=== PATIENT | female | born 1995 | race Two or more races ===

== ENCOUNTER 2019-03-16 14:21 | Emergency (ER) | payer OTHER ==
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
== END 2019-03-16 16:45 | disposition home or self-care (01) ==
LOC: FB.ED 14:21
DX: R40.4 Transient alteration of awareness (principal); Z71.1 Person with feared health complaint in whom no diagnosis is made; F41.9 Anxiety disorder, unspecified; F32.9 Major depressive disorder, single episode, unspecified; E66.9 Obesity, unspecified; F17.200 Nicotine dependence, unspecified, uncomplicated; Z79.899 Other long term (current) drug therapy
CPT/HCPCS: 80305-QW; 99283

== ENCOUNTER 2019-11-27 05:12 | Emergency (ER) | payer OTHER ==
[2019-11-27] MEDS ORDERED: Lidocaine 2% Viscous Solution 15 ML Cup PO ONE (05:42)
--- NOTE | 2019-11-27 06:54 | EDM.PDOC ---
ED HPI GENERAL MEDICAL PROBLEM - General Stated Complaint: SELF HARM Time Seen by Provider: 11/27/19 07:00 Source of Information: Reports: Patient History Limitations: Reports: No Limitations - History of Present Illness INITIAL COMMENTS - FREE TEXT/NARRATIVE: Patient presented to the ED because she is feeling depressed, has been drinking tonight, and cut her left forearm with a knife. She has several superficial cuts. She denies any suicidal or homicidal ideations. She said she is under a lot of stress lately due to family , school, and her depression not getting better. - Related Data Allergies Allergy/AdvReac Type Severity Reaction Status Date / Time No Known Allergies Allergy Verified 03/16/19 14:41 Home Meds: Home Meds Sertraline [Zoloft] 50 mg PO DAILY 03/16/19 [History] Past Medical History Psychiatric History: Reports: Anxiety, Depression Endocrine/Metabolic History: Reports: Obesity/BMI 30+ - Past Surgical History HEENT Surgical History: Reports: Oral Surgery (Was indeed extraction), Other (See Below) (Cyst removed from jaw) Social & Family History - Family History Family Medical History: Noncontributory - Caffeine Use Caffeine Use: Reports: Soda - Living Situation & Occupation Occupation: Employed (Works at [employer]) ED ROS GENERAL - Review of Systems Review Of Systems: See Below Constitutional: Reports: No Symptoms HEENT: Reports: No Symptoms Respiratory: Reports: No Symptoms Cardiovascular: Reports: No Symptoms Endocrine: Reports: No Symptoms GI/Abdominal: Reports: No Symptoms : Reports: No Symptoms Musculoskeletal: Reports: No Symptoms Skin: Reports: Wound Neurological: Reports: No Symptoms Psychiatric: Reports: Anxiety Hematologic/Lymphatic: Reports: No Symptoms ED EXAM, GENERAL - Physical Exam Exam: See Below Exam Limited By: No Limitations General Appearance: Alert, No Apparent Distress Nose: Normal Inspection, Normal Mucosa, No Blood Throat/Mouth: Normal Inspection, Normal Lips, Normal Teeth Head: Atraumatic, Normocephalic Neck: Normal Inspection, Supple, Non-Tender, Full Range of Motion Respiratory/Chest: No Respiratory Distress, Lungs Clear, Normal Breath Sounds Cardiovascular: Normal Peripheral Pulses, Regular Rate, Rhythm, No Edema GI/Abdominal: Normal Bowel Sounds, Soft, Non-Tender, No Organomegaly Back Exam: Normal Inspection, Full Range of Motion Extremities: Normal Inspection, Normal Range of Motion Neurological: Alert, Oriented, CN II-XII Intact Psychiatric: Depressed Mood, Flat Affect Skin Exam: Warm, Other (multiple superficial cuts on left forearm) Course - Vital Signs Text/Narrative:: Labs reviewed and discussed with patient Dermabond was applied to the superficial cuts [facility] recommended outpatient therapy and adjustment of medication - Orders/Labs/Meds Orders: Active Orders 24 hr Category Date Time Status THYROXINE (T4) FREE, DIRECT, S Stat Lab 11/27/19 05:35 Received Labs: Laboratory Tests 11/27/19 11/27/19 11/27/19 Range/Units 05:09 05:09 05:09 WBC (4.5-12.0) X10-3/uL RBC (3.23-5.20) x10(6)uL Hgb (11.5-15.5) g/dL Hct (30.0-51.3) % MCV (80-96) fL MCH (27.7-33.6) pg MCHC (32.2-35.4) g/dL RDW (11.5-15.5) % Plt Count (125-369) X10(3)uL MPV (7.4-10.4) fL Neut % (Auto) (46-82) % Lymph % (Auto) (13-37) % [place] % (Auto) (4-12) % Eos % (Auto) (1.0-5.0) % Baso % (Auto) (0-2) % Neut # (Auto) (1.6-8.3) # Lymph # (Auto) (0.6-5.0) # [place] # (Auto) (0.0-1.3) # Eos # (Auto) (0.0-0.8) # Baso # (Auto) (0.0-0.2) # Sodium (135-145) mmol/L Potassium (3.5-5.3) mmol/L Chloride (100-110) mmol/L Carbon Dioxide (21-32) mmol/L BUN (7-18) mg/dL Creatinine (0.55-1.02) mg/dL Est Cr Clr Drug Dosing Estimated GFR (MDRD) (>60) BUN/Creatinine Ratio (9-20) Glucose (80-116) mg/dL Calcium (8.6-10.2) mg/dL Total Bilirubin (0.1-1.3) mg/dL AST (5-25) IU/L ALT (12-36) U/L Alkaline Phosphatase (56-112) IU/L Total Protein (6.0-8.0) g/dL Albumin (3.5-5.2) g/dL Globulin g/dL Albumin/Globulin Ratio TSH, Ultra Sensitive (0.36-3.74) IU/mL Urine Color Yellow (YELLOW) Urine Appearance Clear (CLEAR) Urine pH 6.0 (5.0-6.5) Ur Specific [place] 1.020 (1.010-1.025) Urine Protein Negative (NEGATIVE) mg/dL Urine Glucose (UA) Normal (NORMAL) mg/dL Urine Ketones Negative (NEGATIVE) mg/dL Urine Occult Blood Negative (NEGATIVE) Urine Nitrite Negative (NEGATIVE) Urine Bilirubin Negative (NEGATIVE) Urine Urobilinogen Normal (NEGATIVE) mg/dL Ur Leukocyte Esterase Negative (NEGATIVE) Urine RBC Not seen (0-5) Urine WBC 0-5 (0-5) Ur Squamous Epith Cells Few H (NS,R,O) Urine Bacteria Few H (NS) Urine HCG, Qual Negative (NEGATIVE) Urine Opiates Screen Negative (NEGATIVE) Ur Oxycodone Screen Negative (NEGATIVE) Ur Propoxyphene Screen Negative (NEGATIVE) Ur Barbituates Screen Negative (NEGATIVE) Ur Tricyclics Screen Negative (NEGATIVE) Ur Phencyclidine Scrn Negative (NEGATIVE) Ur Amphetamine Screen Negative (NEGATIVE) Urine MDMA Screen Negative (NEGATIVE) U Benzodiazepines Scrn Negative (NEGATIVE) U Cocaine Metab Screen Negative (NEGATIVE) U Marijuana (THC) Screen Negative (NEGATIVE) Ethyl Alcohol (<0.03) % 11/27/19 11/27/19 11/27/19 Range/Units 05:35 05:35 05:35 WBC 12.1 H (4.5-12.0) X10-3/uL RBC 5.51 H (3.23-5.20) x10(6)uL Hgb 14.7 (11.5-15.5) g/dL Hct 46.8 (30.0-51.3) % MCV 85.0 (80-96) fL MCH 26.6 L (27.7-33.6) pg MCHC 31.3 L (32.2-35.4) g/dL RDW 13.8 (11.5-15.5) % Plt Count 320 (125-369) X10(3)uL MPV 7.4 (7.4-10.4) fL Neut % (Auto) 54.5 (46-82) % Lymph % (Auto) 38.2 H (13-37) % [place] % (Auto) 6.0 (4-12) % Eos % (Auto) 1 (1.0-5.0) % Baso % (Auto) 1 (0-2) % Neut # (Auto) 6.6 (1.6-8.3) # Lymph # (Auto) 4.6 (0.6-5.0) # [place] # (Auto) 0.7 (0.0-1.3) # Eos # (Auto) 0.1 (0.0-0.8) # Baso # (Auto) 0.1 (0.0-0.2) # Sodium 141 (135-145) mmol/L Potassium 3.6 (3.5-5.3) mmol/L Chloride 103 (100-110) mmol/L Carbon Dioxide 25 (21-32) mmol/L BUN 7 (7-18) mg/dL Creatinine 0.7 (0.55-1.02) mg/dL Est Cr Clr Drug Dosing TNP Estimated GFR (MDRD) > 60 (>60) BUN/Creatinine Ratio 10.0 (9-20) Glucose 169 H (80-116) mg/dL Calcium 8.6 (8.6-10.2) mg/dL Total Bilirubin 0.2 (0.1-1.3) mg/dL AST 28 H (5-25) IU/L ALT 41 H (12-36) U/L Alkaline Phosphatase 122 H (56-112) IU/L Total Protein 8.1 H (6.0-8.0) g/dL Albumin 3.6 (3.5-5.2) g/dL Globulin 4.5 g/dL Albumin/Globulin Ratio 0.8 TSH, Ultra Sensitive 4.09 H (0.36-3.74) IU/mL Urine Color (YELLOW) Urine Appearance (CLEAR) Urine pH (5.0-6.5) Ur Specific [place] (1.010-1.025) Urine Protein (NEGATIVE) mg/dL Urine Glucose (UA) (NORMAL) mg/dL Urine Ketones (NEGATIVE) mg/dL Urine Occult Blood (NEGATIVE) Urine Nitrite (NEGATIVE) Urine Bilirubin (NEGATIVE) Urine Urobilinogen (NEGATIVE) mg/dL Ur Leukocyte Esterase (NEGATIVE) Urine RBC (0-5) Urine WBC (0-5) Ur Squamous Epith Cells (NS,R,O) Urine Bacteria (NS) Urine HCG, Qual (NEGATIVE) Urine Opiates Screen (NEGATIVE) Ur Oxycodone Screen (NEGATIVE) Ur Propoxyphene Screen (NEGATIVE) Ur Barbituates Screen (NEGATIVE) Ur Tricyclics Screen (NEGATIVE) Ur Phencyclidine Scrn (NEGATIVE) Ur Amphetamine Screen (NEGATIVE) Urine MDMA Screen (NEGATIVE) U Benzodiazepines Scrn (NEGATIVE) U Cocaine Metab Screen (NEGATIVE) U Marijuana (THC) Screen (NEGATIVE) Ethyl Alcohol 0.11 H (<0.03) % Meds: Medications Discontinued Medications Generic Name Dose Route Start Last Admin Trade Name Freq PRN Reason Stop Dose Admin Lidocaine HCl 15 ml 11/27/19 05:42 Xylocaine 2% Viscous PO 11/27/19 05:43 ONETIME ONE Departure - Departure Time of Disposition: 06:50 Disposition: Home, Self-Care 01 Condition: Good Clinical Impression: Self-mutilation, Depression - Discharge Information Instructions: Major Depressive Disorder, Adult Referrals: PCP,None [Primary Care Provider] - Additional Instructions: Please read discharge instructions on depression and self mutilation Call your doctor so your Zoloft can be adjusted to 100 mg daily Call the numbers provided in the pamphlets for you to have an outpatient therapy today If you feel like evrything is out of control or if you're planning to hurt yourself the ER is open 24 hours to help you - My Orders Last 24 Hours: My Active Orders 11/27/19 05:35 THYROXINE (T4) FREE, DIRECT, S Stat - Assessment/Plan Last 24 Hours: My Active Orders 11/27/19 05:35 THYROXINE (T4) FREE, DIRECT, S Stat
== END 2019-11-27 07:00 | disposition home or self-care (01) ==
LOC: FB.ED 05:12
DX: S51.812A Laceration without foreign body of left forearm, initial encounter (principal); F32.9 Major depressive disorder, single episode, unspecified; F41.9 Anxiety disorder, unspecified; E66.9 Obesity, unspecified; Z68.43 Body mass index [BMI] 50.0-59.9, adult; Z79.899 Other long term (current) drug therapy; X78.1XXA Intentional self-harm by knife, initial encounter
CPT/HCPCS: 12002; 36415; 80053; 80305; 80307; 81001; 81025; 84439; 84443; 85025; 99284; A9270; 99283

== ENCOUNTER 2020-06-01 16:32 | Emergency (ER) | payer OTHER ==
[2020-06-01] MEDS ORDERED: Lidocaine 2% Viscous Solution 15 ML Cup PO ONE (16:33)
[2020-06-01] MEDS ORDERED: Lidocaine 2% Viscous Solution 15 ML Cup PO STA ×2 (16:55→19:21)
[2020-06-01] MEDS ORDERED: Sodium Chloride 0.9% 10 ML Syringe FLUSH PRN (16:55)
[2020-06-01] MEDS ORDERED: Ketorolac 30 MG/ML SDV IVPUSH STA (16:55)
[2020-06-01] MEDS ORDERED: Ondansetron 4 MG/2 ML SDV IVPUSH STA (16:55)
[2020-06-01] MEDS ORDERED: Sodium Chloride 0.9% 1,000 ML IV SCH (17:00)
[2020-06-01] MEDS ORDERED: Alum Hydroxide/Mag Hydroxide 15 ML, Lidocaine 2% 15 ML PO ONE ×2 (17:06)
--- NOTE | 2020-06-01 19:14 | EDM.PDOC ---
ED HPI GENERAL MEDICAL PROBLEM - General Chief Complaint: ENT Problem Stated Complaint: POST SURGERY COMPLICTIONS Time Seen by Provider: 06/01/20 16:50 Source of Information: Reports: Patient History Limitations: Reports: No Limitations - History of Present Illness INITIAL COMMENTS - FREE TEXT/NARRATIVE: Patient presented to the ED because of throat pain especially on swallowing, nausea and vomiting. She is post op day 3-tonsillectomy and is taking norco for pain. there is no associated fever or chills. Throat Pain Score (Numeric/FACES): 2 - Related Data Allergies Allergy/AdvReac Type Severity Reaction Status Date / Time No Known Allergies Allergy Verified 11/28/19 04:18 Home Meds: Home Meds Sertraline [Zoloft] 50 mg PO DAILY 03/16/19 [History] Lidocaine 2% [Xylocaine 2% Jelly] 10 ml PO Q4H PRN #120 tube 06/01/20 [Rx] Ondansetron [Zofran ODT] 4 mg PO Q4H PRN #5 tab.dis 06/01/20 [Rx] Past Medical History Psychiatric History: Reports: Anxiety, Depression Endocrine/Metabolic History: Reports: Obesity/BMI 30+ Other Endocrine/Metabolic History: States pre-diabetes. - Past Surgical History HEENT Surgical History: Reports: Oral Surgery (Was indeed extraction), Other (See Below) (Cyst removed from jaw) Social & Family History - Family History Family Medical History: No Pertinent Family History - Caffeine Use Caffeine Use: Reports: Soda - Living Situation & Occupation Occupation: Employed (Works at [employer]) ED ROS ENT - Review of Systems Review Of Systems: See Below Constitutional: Reports: No Symptoms HEENT: Reports: Throat Pain Respiratory: Reports: No Symptoms Cardiovascular: Reports: No Symptoms Endocrine: Reports: No Symptoms GI/Abdominal: Reports: Nausea, Vomiting : Reports: No Symptoms Musculoskeletal: Reports: No Symptoms Skin: Reports: No Symptoms Neurological: Reports: No Symptoms Psychiatric: Reports: No Symptoms ED EXAM, ENT - Physical Exam Exam: See Below Exam Limited By: No Limitations General Appearance: Alert, No Apparent Distress Eye Exam: Bilateral Eye: PERRL Ears: Normal External Exam, Normal Canal Nose: Normal Inspection, Normal Mucousa, No Blood Mouth/Throat: Normal Inspection, Normal Gums, Other (no post op bleeding) Head: Atraumatic, Normocephalic Neck: Normal Inspection, Supple, Non-Tender Respiratory/Chest: No Respiratory Distress, Lungs Clear, Normal Breath Sounds, No Accessory Muscle Use, Chest Non-Tender Cardiovascular: Normal Peripheral Pulses, Regular Rate, Rhythm, No Edema, No Gallop, No JVD, No Murmur, No Rub GI/Abdominal: Normal Bowel Sounds, Soft, Non-Tender, No Organomegaly, No Distention, No Abnormal Bruit Extremities: Normal Inspection, Normal Range of Motion, Non-Tender, No Pedal Edema, Normal Capillary Refill Neurological: Alert, Oriented, CN II-XII Intact Psychiatric: Normal Affect, Normal Mood Skin: Warm Course - Vital Signs Text/Narrative:: Lab result was discussed with patient NS 1 L bolus Viscous lidocaine 15 ml po x3 Zofran 4 mg IV x1 Toradol 30 mg IV x1 Last Recorded V/S: Last Vital Signs Temp 36.2 C 06/01/20 16:45 Pulse 103 H 06/01/20 16:45 Resp 16 06/01/20 16:45 BP 129/81 06/01/20 16:45 Pulse Ox 92 L 06/01/20 16:45 - Orders/Labs/Meds Orders: Active Orders 24 hr Category Date Time Status Saline Lock Insert [OM.PC] Routine Oth 06/01/20 16:55 Ordered Labs: Laboratory Tests 06/01/20 06/01/20 Range/Units 17:10 17:10 WBC 14.6 H (3.0-10.3) x10-3/uL RBC 5.93 H (3.60-5.20) x10(6)uL Hgb 16.0 H (11.4-15.5) g/dL Hct 49.3 H (34.2-48.2) % MCV 83.1 (76.7-100.5) fL MCH 27.0 (23.9-33.9) pg MCHC 32.5 (31.9-34.8) g/dL RDW 14.5 (12.3-16.5) % Plt Count 368 (151-488) x10(3)uL MPV 7.8 (7.1-12.4) fL Add Manual Diff Yes Neutrophils % (Manual) 67 (46-82) % Lymphocytes % (Manual) 22 (13-37) % Monocytes % (Manual) 7 (4-12) % Eosinophils % (Manual) 1 (0-5) % Basophils % (Manual) 3 H (0-2) % Sodium 139 (135-145) mmol/L Potassium 4.4 (3.5-5.3) mmol/L Chloride 99 L (100-110) mmol/L Carbon Dioxide 25 (21-32) mmol/L BUN 10 (7-18) mg/dL Creatinine 0.7 (0.55-1.02) mg/dL Est Cr Clr Drug Dosing TNP Estimated GFR (MDRD) > 60 (>60) BUN/Creatinine Ratio 14.3 (9-20) Glucose 89 D (80-116) mg/dL Calcium 9.4 (8.6-10.2) mg/dL Meds: Medications Discontinued Medications Generic Name Dose Route Start Last Admin Trade Name Freq PRN Reason Stop Dose Admin Al Hydroxide/Mg Hydroxide 15 0 ml 06/01/20 17:06 06/01/20 19:38 ml/ Lidocaine HCl 15 ml PO 06/01/20 17:07 Not Given ONETIME ONE Sodium Chloride 1,000 mls @ 999 mls/hr 06/01/20 17:00 06/01/20 17:01 Normal Saline IV 999 mls/hr ASDIRECTED JOLYNN Administration Ketorolac Tromethamine 30 mg 06/01/20 16:55 06/01/20 17:01 Ketorolac 30 Mg/Ml Sdv IVPUSH 06/01/20 16:56 30 mg NOW STA Administration Lidocaine HCl 15 ml 06/01/20 16:55 06/01/20 17:03 Lidocaine 2% Viscous Solution 15 Ml Cup PO 06/01/20 16:56 15 ml NOW STA Administration Lidocaine HCl 15 ml 06/01/20 19:21 06/01/20 19:39 Lidocaine 2% Viscous Solution 15 Ml Cup PO 06/01/20 19:22 Not Given NOW STA Lidocaine HCl 15 ml 06/01/20 16:33 Lidocaine 2% Viscous Solution 15 Ml Cup PO 06/01/20 16:34 .STK-MED ONE Ondansetron HCl 4 mg 06/01/20 16:55 06/01/20 17:03 Ondansetron 4 Mg/2 Ml Sdv IVPUSH 06/01/20 16:56 4 mg NOW STA Administration Sodium Chloride 10 ml 06/01/20 16:55 06/01/20 17:03 Sodium Chloride 0.9% 10 Ml Syringe FLUSH 10 ml ASDIRECTED PRN Administration Keep Vein Open Departure - Departure Time of Disposition: 19:10 Disposition: Home, Self-Care 01 Condition: Good Clinical Impression: Post-operative pain, Nausea & vomiting - Discharge Information Prescriptions: Lidocaine 2% [Xylocaine 2% Jelly] 10 ml PO Q4H PRN #120 tube PRN Reason: Pain Ondansetron [Zofran ODT] 4 mg PO Q4H PRN #5 tab.dis PRN Reason: Nausea Instructions: Tonsillectomy, Adult, Care After, [id number] Referrals: PCP,None [Primary Care Provider] - Forms: ED Department Discharge Additional Instructions: Please read discharge instructions on post op pain Viscous lidocaine-gurgle for 1 minute then swallow every 4 hours as needed for pain Crush and swallow your hydrocodne every 4 -6 hours as needed for pain Zofran ODT 4 mg every 4 hours as needed for nausea Follow up as needed - My Orders Last 24 Hours: My Active Orders 06/01/20 16:55 Saline Lock Insert [OM.PC] Routine - Assessment/Plan Last 24 Hours: My Active Orders 06/01/20 16:55 Saline Lock Insert [OM.PC] Routine
== END 2020-06-01 19:36 | disposition home or self-care (01) ==
LOC: FB.ED 16:32
DX: G89.18 Other acute postprocedural pain (principal); R11.2 Nausea with vomiting, unspecified; E66.9 Obesity, unspecified; Z68.34 Body mass index [BMI] 34.0-34.9, adult; Z79.899 Other long term (current) drug therapy
CPT/HCPCS: 36415; 80048; 85025; 96374; 96375; 99284; A9270; J1885; J2405; J7030

== ENCOUNTER 2021-02-09 17:40 | Emergency (ER) | payer SELFPAY ==
--- NOTE | 2021-02-09 18:05 | EDM.PDOC ---
ED HPI GENERAL MEDICAL PROBLEM - General Stated Complaint: PASSING MASSIVE BLOOD CLOTS Time Seen by Provider: 02/09/21 18:00 Source of Information: Reports: Patient History Limitations: Reports: No Limitations - History of Present Illness INITIAL COMMENTS - FREE TEXT/NARRATIVE: 25-year-old female who reports onset of vaginal bleeding which she felt was her normal menstrual period 7 days ago. The patient felt that she was getting and she did go to work today. However, today, she has passed several large clots and has bled through her tampons and pads multiple times. She does have some constant pelvic and lower abdominal and lower back cramping kind of pain that she rates as a 4-5/10. She has had some nausea but no vomiting. She states that at the beginning of this month she had a few days when she did not take her control and she took plan B. She has had no fevers or chills. No dysuria or hematuria. She has been eating and drinking normally. She reports that her menstrual periods are quite irregular since she had the implanted control removed about 4-6 months ago. She is sexually active. She has had no fevers or chills. No cough, chest pain or shortness of breath. Other associated signs or symptoms. There are no other modifying factors. Onset: Other (7 days ago) Duration: Getting Worse Location: Reports: Abdomen Quality: Reports: Other (Cramping) Severity: Moderate Improves with: Reports: Rest Worsens with: Reports: Other (Activity) Context: Reports: Other (As above.) Associated Symptoms: Reports: No Other Symptoms (Except as above.) Treatments [employer] SPECIALIST: Reports: Other (see below) (Nothing.) Lower Abdomen Pain Score (Numeric/FACES): 2 - Related Data Allergies Allergy/AdvReac Type Severity Reaction Status Date / Time No Known Allergies Allergy Verified 02/09/21 18:05 Home Meds: Home Meds Sertraline [Zoloft] 50 mg PO DAILY 03/16/19 [History] Lidocaine 2% [Xylocaine 2% Jelly] 10 ml PO Q4H PRN #120 tube 06/01/20 [Rx] Ondansetron [Zofran ODT] 4 mg PO Q4H PRN #5 tab.dis 06/01/20 [Rx] Tranexamic Acid 1,300 mg PO TID 5 Days #30 tablet 02/09/21 [Rx] Past Medical History Cardiovascular History: Reports: Hypertension Psychiatric History: Reports: Anxiety, Depression Endocrine/Metabolic History: Reports: Obesity/BMI 30+ Other Endocrine/Metabolic History: States pre-diabetes. - Past Surgical History HEENT Surgical History: Reports: Adenoidectomy, Oral Surgery, Tonsillectomy, Other (See Below) Other HEENT Surgeries/Procedures: [place] teeth removed. Cyst removed from her jaw. Social & Family History - Tobacco Use Tobacco Use Within Last Twelve Months: Vaping (Nicotine containing products.) - Caffeine Use Caffeine Use: Reports: None - Alcohol Use Alcohol Use History: Yes Alcohol Use Frequency: Socially - Living Situation & Occupation Occupation: Employed (Works at [employer]) ED ROS GENERAL - Review of Systems Review Of Systems: See Below Constitutional: Denies: Fever, Chills, Weakness HEENT: Denies: Throat Pain, Throat Swelling Respiratory: Denies: Shortness of Breath, Cough Cardiovascular: Denies: Chest Pain, Dyspnea on Exertion Endocrine: Reports: Fatigue GI/Abdominal: Reports: Abdominal Pain, Nausea. Denies: Vomiting : Reports: Irregular Menses, Pain (Pelvic pain). Denies: Flank Pain Musculoskeletal: Reports: Back Pain (Her back pain). Denies: Neck Pain Skin: Denies: Diaphoresis, Rash Neurological: Denies: Dizziness, Headache Psychiatric: Reports: Anxiety Hematologic/Lymphatic: Denies: Easy Bleeding, Easy Bruising ED EXAM, GENERAL - Physical Exam Exam: See Below Exam Limited By: No Limitations General Appearance: Alert, WD/WN, Mild Distress, Obese, Other (Nontoxic appearing) Eye Exam: Bilateral Eye: EOMI, Normal Inspection (Sclera are anicteric), PERRL Ears: Normal External Exam, Hearing Grossly Normal Ear Exam: Bilateral Ear: Auricle Normal Nose: Normal Inspection, Normal Mucosa, No Blood Throat/Mouth: Normal Voice, No Airway Compromise Head: Atraumatic, Normocephalic Neck: Normal Inspection, Supple, Non-Tender, Full Range of Motion Respiratory/Chest: No Respiratory Distress, Lungs Clear, Normal Breath Sounds, No Accessory Muscle Use, Chest Non-Tender Cardiovascular: Normal Peripheral Pulses, Regular Rate, Rhythm, No Edema Peripheral Pulses: 2+: Radial (L), Radial (R) GI/Abdominal: Normal Bowel Sounds, Soft, Non-Tender, No Mass Back Exam: Normal Inspection. No: CVA Tenderness (R), CVA Tenderness (L) Extremities: Normal Inspection, Normal Range of Motion, Non-Tender, No Pedal Edema, Normal Capillary Refill Neurological: Alert, Oriented, CN II-XII Intact, Normal Cognition, No Motor/Sensory Deficits Psychiatric: Normal Affect Skin Exam: Warm, Dry, Intact, Normal Color, No Rash. No: Pallor Course - Vital Signs Last Recorded V/S: Last Vital Signs Temp 36.7 C 02/09/21 20:40 Pulse 82 02/09/21 20:40 Resp 18 02/09/21 20:40 BP 140/74 02/09/21 20:40 Pulse Ox 99 02/09/21 20:40 Orthostatic Blood Pressure [ 137/87 Standing] Orthostatic Blood Pressure [ 132/90 Sitting] Orthostatic Blood Pressure [ 126/81 Supine] - Orders/Labs/Meds Orders: Active Orders 24 hr Category Date Time Status Peripheral IV Insertion Adult [OM.PC] Routine Oth 02/09/21 19:21 Ordered Labs: Laboratory Tests 02/09/21 02/09/21 Range/Units 18:10 18:15 WBC 11.0 H (3.0-10.3) x10-3/uL RBC 5.12 (3.60-5.20) x10(6)uL Hgb 13.8 (11.4-15.5) g/dL Hct 42.1 (34.2-48.2) % MCV 82.2 (76.7-100.5) fL MCH 26.9 (23.9-33.9) pg MCHC 32.7 (31.9-34.8) g/dL RDW 14.1 (12.3-16.5) % Plt Count 336 (151-488) x10(3)uL MPV 7.1 (7.1-12.4) fL Neut % (Auto) 57.6 (30.8-76.2) % Lymph % (Auto) 35.5 (18.4-52.1) % [place] % (Auto) 5.5 (4.4-15.7) % Eos % (Auto) 0.8 (0.6-8.1) % Baso % (Auto) 0.6 (0.2-1.5) % Neut # (Auto) 6.3 (1.5-6.3) x10-3/uL Lymph # (Auto) 3.9 (1.0-4.4) x10-3/uL [place] # (Auto) 0.6 (0.3-1.0) x10-3/uL Eos # (Auto) 0.1 (0.0-0.8) x10-3/uL Baso # (Auto) 0.1 (0.0-0.1) x10-3/uL Urine HCG, Qual Negative (NEGATIVE) Meds: Medications Discontinued Medications Generic Name Dose Route Start Last Admin Trade Name Freq PRN Reason Stop Dose Admin Tranexamic Acid 1,000 mg/ 60 mls @ 200 mls/hr 02/09/21 19:22 02/09/21 20:02 Sodium Chloride IV 02/09/21 19:39 200 mls/hr ONETIME ONE Administration Sodium Chloride 10 ml 02/09/21 19:21 Sodium Chloride 0.9% 10 Ml Syringe FLUSH ASDIRECTED PRN Keep Vein Open - Re-Assessments/Exams Free Text/Narrative Re-Assessment/Exam: 02/09/21 18:50: Patient with a negative test and her hemoglobin is 13.8. Her orthostatic vital signs were essentially unchanged. She did have a slight increase in her heart rate from 80-100 but really no symptoms of diz ziness or weakness with standing. I will call and discussed the patient's case with the mobile application architect at [facility] in [place]. 02/09/21 18:55: I called [facility] [employer] and they had to get the mobile application architect to call me back. 02/09/21 19:15: I discussed the patient's case with Dr. Cleary, mobile application architect at [facility] in [place], he gave 3 options. First option was to do nothing and 2 just waited out for another 2 days. The second option would be to treat with Provera 10 mg daily for 5 days but she would have withdrawal bleeding following this and that may be what she is having now because she took the plan B earlier in the month.. The third option would be to take tranexamic acid 3 times a day for the next [address] Arellano would recommend the tranexamic acid treatment. This has been commonly used for people with heavy menstrual periods in the past and has been tolerated well. I discussed all of these options with the patient and she would choose the treatment with the tranexamic acid. We do not have the oral dose here at [facility]. I will give the patient 1000 mg of tranexamic acid IV. An I will send a prescription with her for 5 days of therapy. She should rest. I have given her off work for the next 2 days. She should drink plenty of fluids. Shee should take ibuprofen 600 mg 3 times a day for the next 5 days as well. This was also recommended by the mobile application architect. Departure - Departure Time of Disposition: 19:45 Disposition: Home, Self-Care 01 Condition: Good (Stable) Clinical Impression: Dysfunctional uterine bleeding, Menometrorrhagia - Discharge Information Prescriptions: Tranexamic Acid 1,300 mg PO TID 5 Days #30 tablet Instructions: Menorrhagia, [id number], Abnormal Uterine Bleeding, [id number], Dysfunctional Uterine Bleeding Referrals: PCP,None [Primary Care Provider] - Forms: ED Department Discharge Additional Instructions: Your test was negative. Your blood count was normal. Your blood pressure was slightly elevated but you did not show any evidence of dehydration or significant blood loss at this time. I discussed your case with the gynecolo gist at [facility] in [place] and he recommended treatment with tranexamic acid for 5 days. This has been commonly used with people with heavy menstrual periods and tolerated well. He also recommended that you increase your fluid intake. He also recommended that you take ibuprofen 600-800 mg 3 times a day for the next 3-5 days. You should have no work or strenuous activity for the next 2 days and I'm giving you a note for your work. Back to the emergency department for severe weakness, vomiting, trouble breathing or any other concerning signs or symptoms. I would recommend that he follow-up with your primary provider or your mobile application architect about this bleeding - My Orders Last 24 Hours: My Active Orders 02/09/21 19:21 Peripheral IV Insertion Adult [OM.PC] Routine - Assessment/Plan Last 24 Hours: My Active Orders 02/09/21 19:21 Peripheral IV Insertion Adult [OM.PC] Routine
[2021-02-09] MEDS ORDERED: Sodium Chloride 0.9% 10 ML Syringe FLUSH PRN (19:21)
[2021-02-09] MEDS ORDERED: Tranexamic Acid 1,000 MG in Sodium Chloride 0.9% 50 ML IV ONE (19:22)
== END 2021-02-09 20:35 | disposition home or self-care (01) ==
LOC: FB.ED 17:40
DX: N92.1 Excessive and frequent menstruation with irregular cycle (principal); I10 Essential (primary) hypertension; F17.290 Nicotine dependence, other tobacco product, uncomplicated; E66.9 Obesity, unspecified; Z68.42 Body mass index [BMI] 45.0-49.9, adult; Z79.899 Other long term (current) drug therapy
CPT/HCPCS: 36415; 81025; 85025; 96365; 99284-25

== ENCOUNTER 2022-12-09 17:34 | Emergency (ER) | payer OTHER ==
[2022-12-09 19:10] LABS: BILIRUBIN,URINE NEGATIVE (NEGATIVE); GLUCOSE,URINE NORMAL (NORMAL); KETONES,URINE NEGATIVE (NEGATIVE); LEUKOCYTE ESTERASE,URINE NEGATIVE (NEGATIVE); NITRITE,URINE NEGATIVE (NEGATIVE); OCCULT BLOOD,URINE NEGATIVE (NEGATIVE); PH,URINE 6.5 (5.0-6.5); PROTEIN,URINE NEGATIVE (NEGATIVE); UROBILINOGEN,URINE NORMAL (NEGATIVE)
[2022-12-09] MEDS ORDERED: Ondansetron 4 MG Tab.DIS PO ONE (19:11)
[2022-12-09 19:14] LABS: APPEARANCE,URINE CLEAR (CLEAR); BACTERIA,URINE FEW (NS); COLOR,URINE YELLOW (YELLOW); RBC,URINE 0-5 (0-5); SQUAMOUS EPITHELIAL CELLS,UR FEW (NS,R,O); WBC,URINE 0-5 (0-5)
[2022-12-09 19:16] LABS: BASOPHILS ABSOLUTE AUTO 0.1 x10-3/uL (0.0-0.1); BASOPHILS PERCENT AUTO 0.9 % (0.2-1.5); EOSINOPHILS ABSOLUTE AUTO 0.3 x10-3/uL (0.0-0.8); EOSINOPHILS PERCENT AUTO 2.9 % (0.6-8.1); HEMATOCRIT 44.4 % (34.2-48.2); HEMOGLOBIN 14.7 g/dL (11.4-15.5); LYMPHOCYTES ABSOLUTE AUTO 3.4 x10-3/uL (1.0-4.4); LYMPHOCYTES PERCENT AUTO 31.5 % (18.4-52.1); MEAN CORPUSCULAR HEMOGLOBIN 26.6 pg (23.9-33.9); MEAN CORPUSCULAR VOLUME 80.7 fL (76.7-100.5); MEAN PLATELET VOLUME 7.5 fL (7.1-12.4); MONOCYTES ABSOLUTE AUTO 0.8 x10-3/uL (0.3-1.0); MONOCYTES PERCENT AUTO 7.4 % (4.4-15.7); NEUTROPHILS ABSOLUTE AUTO 6.3 x10-3/uL (1.5-6.3); NEUTROPHILS PERCENT AUTO 57.3 % (30.8-76.2); PLATELET COUNT,PLT 354 x10(3)uL (151-488); RED CELL DISTRIBUTION WIDTH 15.1 % (12.3-16.5); WHITE BLOOD CELL COUNT,WBC 10.9 x10-3/uL (3.0-10.3)
[2022-12-09 19:17] LABS: BLOOD UREA NITROGEN,BUN 7 mg/dL (7-18); CALCIUM 9.3 mg/dL (8.6-10.2); CARBON DIOXIDE,CO2 25 mmol/L (21-32); CHLORIDE,CL 102 mmol/L (100-110); CREATININE 0.7 mg/dL (0.55-1.02); ESTIMATED GFR 123 mL/min (>60); GLUCOSE RANDOM 93 mg/dL (80-116); POTASSIUM,K 3.9 mmol/L (3.5-5.3); SODIUM,NA 136 mmol/L (135-145)
[2022-12-09 19:28] LABS: A/G RATIO 0.9; ALANINE AMINOTRANSFERASE,ALT 40 U/L (12-36); ALBUMIN 3.6 g/dL (3.5-5.2); ALKALINE PHOSPHATASE 126 IU/L (56-112); ASPARTATE AMNIOTRANSFERASE,AST 30 IU/L (5-25); BILIRUBIN TOTAL 0.5 mg/dL (0.1-1.3); MAGNESIUM 1.7 mg/dL (1.8-2.5); PROTEIN TOTAL,TP 7.8 g/dL (6.0-8.0)
[2022-12-09] MEDS ORDERED: amLODIPine 5 MG Tab PO ONE (19:57)
[2022-12-09] MEDS ORDERED: Magnesium Oxide 400 MG Tab PO ONE (19:59)
== END 2022-12-09 21:00 | disposition home or self-care (01) ==
LOC: FB.ED 17:34
DX: I10 Essential (primary) hypertension (principal); F41.9 Anxiety disorder, unspecified; R11.0 Nausea; E66.9 Obesity, unspecified; F17.290 Nicotine dependence, other tobacco product, uncomplicated; Z68.43 Body mass index [BMI] 50.0-59.9, adult; Z79.899 Other long term (current) drug therapy
CPT/HCPCS: 36415; 80053; 81001; 81025; 83735; 84484; 85025; 93005; 93010; 99283; 99284; A9270; Q0162

== ENCOUNTER 2023-11-20 08:05 | Emergency (ER) | payer OTHER | END 2023-11-20 08:55 | disposition home or self-care (01) | LOC: FB.ED 08:05 | DX: M54.50 Low back pain, unspecified (principal); I10 Essential (primary) hypertension; E66.9 Obesity, unspecified; F17.290 Nicotine dependence, other tobacco product, uncomplicated; Z79.899 Other long term (current) drug therapy; X50.0XXA Overexertion from strenuous movement or load, initial encounter; Y92.512 Supermarket, store or market as the place of occurrence of the external cause; Y99.0 Civilian activity done for income or pay | CPT/HCPCS: 99283 ==